=== PATIENT | female | born 2005 | race Caucasian/White ===

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

== ENCOUNTER 2023-06-09 22:40 | Emergency (ER) | payer SELFPAY ==
[2023-06-09 22:41] VITALS: BP 141/75; PULSE 90; RESP 20; TEMP 36.6; O2SAT 98; BMI 38.7
--- NOTE | 2023-06-09 23:38 | PC.NURSE ---
rounded on pt, no needs or concerns at this time.
[2023-06-10 00:33] VITALS: BP 128/84; PULSE 84; RESP 18; TEMP 36.8; O2SAT 99
--- NOTE | 2023-06-10 03:25 | HMH.EDGENADL ---
Discharge Plan Disposition Patient Disposition: Home, Self-Care Condition: Good Prescriptions Prescriptions: New cephalexin 500 mg capsule 500 mg PO QID 7 Days Qty: 28 0RF valacyclovir 1 gram tablet 1,000 mg PO TID 7 Days Qty: 21 0RF Referrals Follow up/Referrals: Provider,Referral, [Primary Care Provider] - See instructions Activity Restrictions/Add. Instructions Additional Instructions/Restrictions: Please take antiviral medications and antibiotic medications as prescribed for treatment given possible infection. Please monitor for any facial weakness. Please continue to treat your feet as discussed for athlete's foot using topical antifungal agents. Discharge instructions. Clinical Impressions Clinical Impression: Impetigo, Vesicles Instructions Patient Instructions: DI for Skin Abscess Discharge ED Provider: Garcia Munoz General Adult HPI <Brad Rivas MD - Last Filed: 06/10/23 03:25> General Chief complaint: Skin/Abscess/Foreign Body Stated complaint: upset stomach, bilateral ear pain, fever/chills Time Seen by Provider: 06/09/23 23:01 Mode of Arrival: Ambulatory Source of Information: Patient Limitations: No Limitations Description of Symptoms (Recalled from ER Triage Doc. by RN): Pt states she developed blisters on her mouth first a couple days ago, then to her nose,ears, and feet yesterday. Rates pain in her ears 910. Related Data Previous Rx's Medication Instructions Recorded cephalexin 500 mg capsule 500 mg PO QID 7 days #28 caps 06/10/23 valacyclovir 1 gram tablet 1,000 mg PO TID 7 days #21 tabs 06/10/23 Allergies Allergy/AdvReac Type Severity Reaction Status Date / Time amoxicillin Allergy Verified 07/04/22 12:56 cefdinir [From Omnicef] Allergy Verified 07/04/22 12:56 Cephalosporins Allergy Hives Verified 06/10/23 09:51 sulfamethoxazole Allergy Verified 07/04/22 12:56 [From Bactrim] trimethoprim [From Bactrim] Allergy Verified 07/04/22 12:56 <Garcia Munoz MD - Last Filed: 06/10/23 19:49> History of Present Illness HPI narrative: Patient presents for evaluation of PFSH <Brad Rivas MD - Last Filed: 06/10/23 03:25> PFSH Disclaimer: The information contained in this section may have been updated after the patient was seen, as this information can be updated by other users. Surgical History History of tonsillectomy History of tympanostomy tube placement Social History Smoking Status: Never smoker alcohol intake: never current occupational status: student Travel in the last 8 weeks: None <Garcia Munoz MD - Last Filed: 06/10/23 19:49> ROS Obtained: Yes Systems reviewed as appropriate & no additional complaints except as documented <Garcia Munoz MD - Last Filed: 06/10/23 19:49> General General appearance: alert and in no apparent distress Head Head exam: atraumatic and normocephalic Eye Eye exam: Present normal appearance Neck Neck exam: Present normal inspection Chest Chest inspection: Present normal inspection and symmetric chest wall rise Respiratory Respiratory exam: Present normal lung sounds bilaterally; Absent respiratory distress Cardiovascular Cardiovascular exam: Present regular rate and normal rhythm Abdominal Exam Abdominal exam: Present soft Neurological Exam Neurological exam: Present alert and oriented X3 Psychiatric Psychiatric exam: Present normal affect and normal mood Skin Skin exam: Present warm and dry Medical Decision Making <Brad Rivas MD - Last Filed: 06/10/23 03:25> Vital Signs: 06/09/23 22:41 06/10/23 00:33 Temperature 98 F 98.2 F Temperature Source Oral Oral Pulse Rate 84 Pulse Rate [Left] 90 Respiratory Rate 20 18 Blood Pressure 128/84 Blood Pressure [Right Arm] 141/75 H Blood Pressure Mean [Right Arm] 97 Blood Pressure Source Automatic Cuff Blood Pressure Source
--- NOTE | 2023-06-10 09:59 | PC.NURSE ---
[facility] pharmacy called, reporting pt has a cephalosporin allergy (not in our system- added allergy at this time) spoke with Dr. Moore, states cancel cephalexin, gave verbal order for Mupirocin ointment BID x7 days- repeated and verified. Verbal prescription given to Patsy at [facility] pharmacy
--- NOTE | 2023-06-11 02:38 | HMH.EDGENADL ---
Discharge Plan Disposition Patient Disposition: Home, Self-Care Condition: Good Prescriptions Prescriptions: New cephalexin 500 mg capsule 500 mg PO QID 7 Days Qty: 28 0RF valacyclovir 1 gram tablet 1,000 mg PO TID 7 Days Qty: 21 0RF Referrals Follow up/Referrals: Provider,Referral, [Primary Care Provider] - See instructions Activity Restrictions/Add. Instructions Additional Instructions/Restrictions: Please take antiviral medications and antibiotic medications as prescribed for treatment given possible infection. Please monitor for any facial weakness. Please continue to treat your feet as discussed for athlete's foot using topical antifungal agents. Discharge instructions. Clinical Impressions Clinical Impression: Impetigo, Vesicles Instructions Patient Instructions: DI for Skin Abscess Discharge ED Provider: Brad Rivas General Adult HPI General Chief complaint: Skin/Abscess/Foreign Body Stated complaint: upset stomach, bilateral ear pain, fever/chills Time Seen by Provider: 06/09/23 23:01 Mode of Arrival: Ambulatory Source of Information: Patient Limitations: No Limitations Description of Symptoms (Recalled from ER Triage Doc. by RN): Pt states she developed blisters on her mouth first a couple days ago, then to her nose,ears, and feet yesterday. Rates pain in her ears 9/10. History of Present Illness HPI narrative: 17-year-old female presents with multiple complaints. Patient has developed some blisters and pustules on the edge of her nose, at the corners of her mouth, and in her ears bilaterally. This has been present for the last couple of days and has been worsening. She reports no fevers chills or systemic symptoms. She reports no intraoral pain, no lesions on the hands. She reports that she is dealing with chronic athlete's foot bilaterally and it seems to be worsening. No recent infectious exposure though she does work at [employer]. She reports no change in hearing but reports significant pain in the ears bilaterally. Reports no neurologic symptoms. She denies any significant medical comorbidities. She reports that she is not sexually active and has had no exposure to STDs. She is up-to-date on her vaccinations. Related Data Previous Rx's Medication Instructions Recorded cephalexin 500 mg capsule 500 mg PO QID 7 days #28 caps 06/10/23 valacyclovir 1 gram tablet 1,000 mg PO TID 7 days #21 tabs 06/10/23 Allergies Allergy/AdvReac Type Severity Reaction Status Date / Time amoxicillin Allergy Verified 07/04/22 12:56 cefdinir [From Omnicef] Allergy Verified 07/04/22 12:56 Cephalosporins Allergy Hives Verified 06/10/23 09:51 sulfamethoxazole Allergy Verified 07/04/22 12:56 [From Bactrim] trimethoprim [From Bactrim] Allergy Verified 07/04/22 12:56 [facility] Disclaimer: The information contained in this section may have been updated after the patient was seen, as this information can be updated by other users. Surgical History History of tonsillectomy History of tympanostomy tube placement Social History Smoking Status: Never smoker alcohol intake: never current occupational status: student Travel in the last 8 weeks: None ROS Obtained: Yes All systems reviewed & no additional complaints except as documented Physical Exam General General appearance: alert and in no apparent distress Head Head exam: atraumatic and normocephalic Eye Eye exam: Present normal appearance, PERRL and EOMI; Absent conjunctival injection ENT ENT exam: Present normal oropharynx (No significant intraoral lesions) and other (Impetigo of the right nare, blisters at the angle of the mouth bilaterally. Unable to visualize the TMs bilaterally secondary to crusting/cerumen); Absent normal external ear exam (Erythema with crusting vesicles/pustules on the pinna and in the EAC b
== END 2023-06-10 00:30 | disposition home or self-care (01) ==
PROVIDERS: Emergency Provider Emergency Medicine
DX: L01.00 Impetigo, unspecified (principal); B00.1 Herpesviral vesicular dermatitis
CPT/HCPCS: 99283

== ENCOUNTER 2023-06-27 09:52 | Emergency (ER) | payer SELFPAY ==
[2023-06-27 10:00] VITALS: BP 119/66; PULSE 61; RESP 20; TEMP 36.7; O2SAT 98; BMI 36.1
--- NOTE | 2023-06-27 10:18 | EXP.UTC ---
Discharge Plan Disposition Patient Disposition: Home, Self-Care Condition: Good Prescriptions Prescriptions: New ciprofloxacin-dexamethasone [Ciprodex] 0.3-0.1 % drops,suspension 4 drp otic (ear) BID 7 Days Qty: 7.5 0RF Rx Instructions: right ear as directed azithromycin [Zithromax Z-Raghu] 250 mg tablet See Rx Instructions .ROUTE .COMPLEX 5 Days Qty: 6 0RF Rx Instructions: For 250 mg dose pack: take 500 mg today (day 1), then 250 mg for 4 days (days 2-5) Referrals Follow up/Referrals: Provider,Referral, MD [Primary Care Provider] - See instructions Activity Restrictions/Add. Instructions Additional Instructions/Restrictions: Use drops as prescribed Follow up with your Family Doctor if no improvement or any worsening of symptoms Follow up with ENT if needed Straight to ER if any life threatening symptoms Clinical Impressions Clinical Impression: Otitis media Qualifiers: Otitis media type: unspecified Laterality: right Qualified Code(s): H66.91 - Otitis media, unspecified, right ear Otitis externa Qualifiers: Otitis externa type: unspecified type Chronicity: unspecified Laterality: right Qualified Code(s): H60.91 - Unspecified otitis externa, right ear Instructions Patient Instructions: DI for Otitis Externa, Otitis Externa, Middle Ear Infection Discharge ED Provider: Sadia Jerome [facility] General Stated complaint: ear pain Mode of Arrival: Ambulatory Source of Information: Patient Limitations: No Limitations Time Seen by Provider: 06/27/23 10:18 Description of Symptoms (Recalled from Triage Doc. by RN): PATIENT C/O RIGHT EAR PAIN HEENT Symptoms (Recalled from RN notes): Yes Resp Symptoms (Recalled from RN notes): No Skin Symptoms (Recalled from RN notes): No MS Symptoms (Recalled from RN notes): No Functional Status (Recalled from RN notes): WNL History of Present Illness Provider Complaint: Patient states that she has been having pain in her right ear with drainage and sore to the touch States that she was recently treated for Impetigo in her ear States that she has finished all her medication but now she is having pain in her right ear feels like she cannot hear out of it and its ringing at times Related Data Previous Rx's Medication Instructions Recorded azithromycin 250 mg tablet See Rx Instructions PO .COMPLEX 5 06/27/23 (Zithromax Z-Raghu) days #6 tabs ciprofloxacin 0.3 %-dexamethasone 4 drp otic (ear) BID 7 days #7.5 mL 06/27/23 0.1 % ear drops,suspension (Ciprodex) Allergies Allergy/AdvReac Type Severity Reaction Status Date / Time amoxicillin Allergy Verified 07/04/22 12:56 cefdinir [From Omnicef] Allergy Verified 07/04/22 12:56 Cephalosporins Allergy Hives Verified 06/10/23 09:51 sulfamethoxazole Allergy Verified 07/04/22 12:56 [From Bactrim] trimethoprim [From Bactrim] Allergy Verified 07/04/22 12:56 Worker's Comp Is this a Worker's Comp case?: No [facility] Disclaimer: The information contained in this section may have been updated after the patient was seen, as this information can be updated by other users. Surgical History History of tonsillectomy History of tympanostomy tube placement Social History Smoking Status: Never smoker alcohol intake: never current occupational status: student Travel in the last 8 weeks: None ROS Obtained: Yes All systems reviewed & no additional complaints except as documented and Yes Systems reviewed as appropriate & no additional complaints except as documented Constitutional Constitutional: Reports system reviewed and no additional complaints, except as documented and Reports as per HPI ENT Ears, Nose, Mouth, and Throat: Reports system reviewed and no additional complaints, except as documented, Reports as per HPI and Reports otalgia Cardiovascular Cardiovascular: Reports system reviewed and n
[2023-06-27 10:21] VITALS: BP 119/66; PULSE 61; RESP 20; TEMP 36.7; O2SAT 98
== END 2023-06-27 10:32 | disposition home or self-care (01) ==
PROVIDERS: Emergency Provider Nurse Practitioner
DX: H66.91 Otitis media, unspecified, right ear (principal); H60.91 Unspecified otitis externa, right ear
CPT/HCPCS: 99212; 99214; G0463

== ENCOUNTER 2023-10-02 12:29 | Emergency (ER) | payer BC, SELFPAY ==
[2023-10-02 14:40] VITALS: BP 125/77; PULSE 76; RESP 19; TEMP 36.7; O2SAT 99; BMI 35.8
[2023-10-02 14:50] VITALS: BP 125/77; PULSE 76; RESP 19; TEMP 36.7; O2SAT 99
--- NOTE | 2023-10-02 15:12 | EXP.UTC ---
Discharge Plan Disposition Patient Disposition: Home, Self-Care Condition: Good Prescriptions Prescriptions: New erythromycin 5 mg/gram (0.5 %) ointment 0.5 inch ophthalmic (eye) BID 10 Days Qty: 7 0RF Rx Instructions: apply to area on right lower eyelid as directed Referrals Follow up/Referrals: Provider,Referral, MD [Primary Care Provider] - See instructions Activity Restrictions/Add. Instructions Additional Instructions/Restrictions: Apply warm compress to eyelid 3-4 times daily and just before applying topical ointment Use prescribed ointment as directed Follow up with your Eye Doctor if no improvement or any worsening of symptoms FOllow up with your Family Doctor if needed Clinical Impressions Clinical Impression: External hordeolum Qualifiers: Laterality: right Eyelid: lower Qualified Code(s): H00.012 - Hordeolum externum right lower eyelid Instructions Patient Instructions: DI for Hordeolum, Hordeolum, Erythromycin Ophthalmic Discharge ED Provider: Sadia Jerome [facility] General Stated complaint: redness and swelling to R eye Mode of Arrival: Ambulatory Source of Information: Patient Limitations: No Limitations Time Seen by Provider: 10/02/23 15:12 Description of Symptoms (Recalled from Triage Doc. by RN): PATIENT C/O REDNESS AND SWELLING TO RIGHT EYE X 3 DAYS HEENT Symptoms (Recalled from RN notes): Yes Resp Symptoms (Recalled from RN notes): No Skin Symptoms (Recalled from RN notes): No MS Symptoms (Recalled from RN notes): No Functional Status (Recalled from RN notes): WNL History of Present Illness Provider Complaint: Patient states that for the last 3 days she has a stye on her right lower eyelid that has continued to get worse and sore States that she has been using warm compresses and it hasnt helped much states that today it was hurting worse so she came in to get it checked Related Data Previous Rx's Medication Instructions Recorded erythromycin 5 mg/gram (0.5 %) eye 0.5 inch ophthalmic (eye) BID 10 10/02/23 ointment days #7 grams Allergies Allergy/AdvReac Type Severity Reaction Status Date / Time amoxicillin Allergy Verified 07/04/22 12:56 cefdinir [From Omnicef] Allergy Verified 07/04/22 12:56 Cephalosporins Allergy Hives Verified 06/10/23 09:51 codeine Allergy Verified 01/01/24 14:47 sulfamethoxazole Allergy Verified 07/04/22 12:56 [From Bactrim] trimethoprim [From Bactrim] Allergy Verified 07/04/22 12:56 Worker's Comp Is this a Worker's Comp case?: No [facility] Disclaimer: The information contained in this section may have been updated after the patient was seen, as this information can be updated by other users. Surgical History History of tonsillectomy History of tympanostomy tube placement Social History Smoking Status: Never smoker alcohol intake: never current occupational status: student Travel in the last 8 weeks: None ROS Obtained: Yes All systems reviewed & no additional complaints except as documented and Yes Systems reviewed as appropriate & no additional complaints except as documented Constitutional Constitutional: Reports system reviewed and no additional complaints, except as documented and Reports as per HPI Eyes Eyes: Reports system reviewed and no additional complaints, except as documented, Reports as per HPI and Reports other (bump with redness and swelling on right lower eyelid) ENT Ears, Nose, Mouth, and Throat: Reports system reviewed and no additional complaints, except as documented and Reports as per HPI Cardiovascular Cardiovascular: Reports system reviewed and no additional complaints, except as documented and Reports as per HPI Respiratory Respiratory: Reports system reviewed and no additional complaints, except as documented and Reports as per HPI Gastrointestinal Gastrointestingal: Reports system reviewed and no additional complaints, except as documented and as per HPI Physical Exam General General appearance: alert and in no apparent distress Eye Eye exam: Present other (redness swelling and stye like lesion noted on right lower eyelid ) ENT ENT exam: Present mucous membranes moist Respiratory Respiratory exam: Present normal lung sounds bilaterally; Absent respiratory distress or wheezes Cardiovascular Cardiovascular exam: Present regular rate, normal rhythm and normal heart sounds Abdominal Exam Abdominal exam: Present soft and normal bowel sounds; Absent distention or tenderness Neurological Exam Neurological exam: Present alert, oriented X3 and normal gait Medical Decision Making Ismael Inquiry Pt receiving controlled substance: No Ismael was queried for this patient: No Vital Signs: 10/02/23 14:40 10/02/23 14:50 Temperature 98.0 F 98.0 F Temperature Source Oral Pulse Rate 76 Pulse Rate [Left Brachial] 76 Respiratory Rate 19 19 Blood Pressure 125/77 Blood Pressure [Left Arm] 125/77 Blood Pressure Mean [Left Arm] 93 Blood Pressure Source [Left Arm] Automatic Cuff Blood Pressure Position [Left Arm] Sitting 02 Sat by Pulse Oximetry 99 Oxygen Delivery Method Room Air
== END 2023-10-02 15:26 | disposition home or self-care (01) ==
PROVIDERS: Emergency Provider Nurse Practitioner
DX: H00.012 Hordeolum externum right lower eyelid (principal)
CPT/HCPCS: 99212; 99214; G0463

== ENCOUNTER 2023-12-30 08:10 | Emergency (ER) | payer BC, SELFPAY ==
[2023-12-30 08:10] VITALS: BP 140/83; PULSE 76; RESP 17; TEMP 36.5; O2SAT 100; BMI 35.5
--- NOTE | 2023-12-30 08:13 | PC.NURSE ---
MD in room talking with patient at this time.
[2023-12-30 08:15] VITALS: PULSE 89; O2SAT 99
--- NOTE | 2023-12-30 08:16 | XR_ITS ---
PROCEDURE INFORMATION: Exam: XR Right Hand Exam date and time: 12/30/2023 8:18 AM Age: 18 years old Clinical indication: Injury or trauma; Other: Dropped microwave on finger; Blunt trauma (contusions or hematomas); Hand; Right; Additional info: Index finger trauma, swelling, tenderness TECHNIQUE: Imaging protocol: Radiologic exam of the right hand. Views: 1 or 2 views. COMPARISON: No relevant prior studies available. FINDINGS: Bones/joints: There is no evidence of acute fracture.There is no evidence of malalignment or dislocation. Soft tissues: Normal. IMPRESSION: There is no evidence of acute fracture.There is no evidence of malalignment or dislocation.
--- NOTE | 2023-12-30 08:17 | HMH.EDGENADL ---
Discharge Plan Disposition Patient Disposition: Home, Self-Care Condition: Good Prescriptions Prescriptions: New clindamycin HCl 150 mg capsule 450 mg PO Q8H 5 Days Qty: 45 0RF Referrals Follow up/Referrals: Provider,Referral, [Primary Care Provider] - See instructions Activity Restrictions/Add. Instructions Additional Instructions/Restrictions: You were seen in the ED today due to finger pain and swelling. You most likely have a cellulitis. Please take antibiotics as prescribed. Watch for any signs of worsening and return to the ED if any symptoms worsen. Clinical Impressions Clinical Impression: Cellulitis Qualifiers: Site of cellulitis: extremity Site of cellulitis of extremity: finger Laterality: right Qualified Code(s): L03.011 - Cellulitis of right finger Instructions Patient Instructions: Cellulitis Discharge ED Provider: Lenny Woodward General Adult HPI General Chief complaint: PAIN Stated complaint: right finger swollen Time Seen by Provider: 12/30/23 08:13 History of Present Illness HPI narrative: Patient is an otherwise healthy 18-year-old female presenting due to finger pain. Patient's mother is present to help provide history. Patient reports 3 days ago she dropped a microwave on her right index finger. States it hurts in the moment however it did not begin to swell and become tender until yesterday. Denies any injury elsewhere. States she did not notice any cuts, abrasions or lacerations. Denies any medications prior to arrival. Related Data Previous Rx's Medication Instructions Recorded clindamycin HCl 150 mg capsule 450 mg (3 x 150 mg) PO Q8H 5 days 12/30/23 #45 caps Allergies Allergy/AdvReac Type Severity Reaction Status Date / Time amoxicillin Allergy Verified 07/04/22 12:56 cefdinir [From Omnicef] Allergy Verified 07/04/22 12:56 Cephalosporins Allergy Hives Verified 06/10/23 09:51 codeine Allergy Verified 10/02/23 14:47 sulfamethoxazole Allergy Verified 07/04/22 12:56 [From Bactrim] trimethoprim [From Bactrim] Allergy Verified 07/04/22 12:[address] [facility] Disclaimer: The information contained in this section may have been updated after the patient was seen, as this information can be updated by other users. Surgical History History of tonsillectomy History of tympanostomy tube placement Social History Smoking Status: Never smoker alcohol intake: never current occupational status: student Travel in the last 8 weeks: None ROS Obtained: Yes All systems reviewed & no additional complaints except as documented Musculoskeletal Musculoskeletal: Reports arthralgias and Reports joint swelling Physical Exam General General appearance: alert and in no apparent distress Head Head exam: atraumatic, normocephalic and normal inspection Eye Eye exam: Present normal appearance, PERRL and EOMI ENT ENT exam: Present normal exam, normal oropharynx, mucous membranes moist, TM's normal bilaterally and normal external ear exam Neck Neck exam: Present normal inspection, full ROM and trachea midline; Absent meningismus or lymphadenopathy Chest Chest inspection: Present normal inspection and symmetric chest wall rise; Absent tenderness Respiratory Respiratory exam: Present normal lung sounds bilaterally; Absent respiratory distress Cardiovascular Cardiovascular exam: Present regular rate and normal rhythm; Absent JVD Abdominal Exam Abdominal exam: Present soft and normal bowel sounds; Absent distention, tenderness or guarding Extremities Exam Extremities exam: Present normal inspection, full ROM and normal capillary refill; Absent calf tenderness Back Exam Back exam: Present normal inspection; Absent tenderness Neurological Exam Neurological exam: Present alert and oriented X3 Psychiatric Psychiatric exam: Present normal affect and normal mood Skin Skin exam: Present warm, dry, intact and normal color Lymphatic Lymphatic Findings: no adenopathy Medical Decision Making Ismael Inquiry Pt receiving controlled substance: No Ismael was queried for this patient: No Vital Signs: 12/30/23 08:10 12/30/23 08:15 12/30/23 08:31 Temperature 97.7 F Temperature Source Oral Pulse Rate 89 91 H Pulse Rate [Left Radial] 76 Respiratory Rate 17 Blood Pressure Blood Pressure [Right Arm] 140/83 Blood Pressure Mean Blood Pressure Mean [Right Arm] 102 02 Sat by Pulse Oximetry 100 99 100 Oxygen Delivery Method Room Air 12/30/23 09:29 12/30/23 10:00 Temperature Temperature Source Pulse Rate 84 84 Pulse Rate [Left Radial] Respiratory Rate Blood Pressure 128/70 124/77 Blood Pressure [Right Arm] Blood Pressure Mean 86 Blood Pressure Mean [Right Arm] 02 Sat by Pulse Oximetry 98 98 Oxygen Delivery Method Room Air Room Air Lab Data Lab Results 12/30/23 09:00: WBC 10.0, RBC 4.68, Hgb 14.1, Hct 42.7, MCV 91.2, MCH 30.2, MCHC 33.1, RDW 14.0, Plt Count 265, MPV 8.4, Neut % (Auto) 68.8, Lymph % (Auto) 22.7, [place] % (Auto) 5.2, Eos % (Auto) 2.3, Baso % (Auto) 1.0, Neut # (Auto) 6.9, Lymph # (Auto) 2.3, [place] # (Auto) 0.5, Eos # (Auto) 0.2, Baso # (Auto) 0.1, ESR 22 H, Sodium 141, Potassium 3.6, Chloride 110 H, Carbon Dioxide 22, Anion Gap 12.6, BUN 10, Creatinine 0.70, Estimated Creat Clear 202, Estimated GFR 107, Est GFR ( Amer) 129, Glucose 121 H, Calcium 9.3, C-Reactive Protein 4.8 H 12/30/23 09:00 12/30/23 09:00 Orders (Tests/Meds): ED MEDICATIONS Discontinued Medications Generic Name Dose Route Start Last Admin Trade Name Nikki PRN Reason Stop Dose Admin Acetaminophen 1,000 mg 12/30/23 08:16 12/30/23 08:31 Acetaminophen 500mg Tab PO 12/30/23 08:17 1,000 mg ONCE ONE Administration Ibuprofen 600 mg 12/30/23 08:16 12/30/23 08:31 Ibuprofen 600 Mg Tablet PO 12/30/23 08:17 600 mg ONCE ONE Administration ORDERS Category Date Time Status Hand XR right 2 views [XR hand RT 2V] Stat Exams 12/30/23 08:16 Completed POCUS Point of Care (ER Only) Stat Exams 12/30/23 09:03 Ordered BMP [Basic Metabolic Panel] Stat Lab 12/30/23 09:00 Completed CBC w/Auto Diff [Complete Blood Count Auto Diff] Stat Lab 12/30/23 09:00 Completed CRP [C-Reactive Protein] Stat Lab 12/30/23 09:00 Completed ESR [Erythrocyte Sedimentation Rate] Stat Lab 12/30/23 09:00 Completed Medical Decision Narrative: In summary, patient is otherwise healthy 18-year-old female, evaluated in the emergency department today due to finger pain and swelling. On arrival, patient is hemodynamically stable with normal vital signs. On examination, patient has swelling, erythema, tenderness to right hand second digit. Differential diagnosis includes but is not limited to fracture, dislocation, cellulitis, flexor tenosynovitis. Patient given oral Tylenol, ibuprofen. Workup initiated including x-ray of right hand, CBC, BMP, ESR, CRP. Labs independently interpreted by me and significant for mildly elevated ESR, CRP. Imaging independently interpreted by me and significant for x-ray right hand demonstrating no acute fracture, no dislocation, otherwise no acute findings. On reevaluation, patient reports improvement in pain. Ultrasound of right hand second digit obtained demonstrating cobblestoning with no tendon sheath edema, consistent with cellulitis. Patient's mildly elevated ESR and CRP are also consistent with cellulitis. Patient is appropriate for discharge on outpatient antibiotics. Patient was counseled at bedside for signs of worsening that would be concerning for flexor tenosynovitis. Patient states she will arrange follow-up with primary care provider. Prescription for clindamycin provided given patient's allergies to cephalosporins and Bactrim. Patient given home care instructions, strict return precautions and agreeable to plan. Additional history was provided by mother. I considered the utility of obtaining CT imaging, but decided against this because this would not telephone exchange operator. I considered the utility of treatment with prescription for narcotics, but decided against this because risks outweigh benefits. I considered admitting the patient to the hospital for observation, and in shared decision-making with patient, decided on outpatient management. Procedures Limited Ultrasound Indication:: Right second digit pain, swelling Views:: Transverse, longitudinal Findings:: Cobblestoning, no tendon sheath edema Interpretation:: Cellulitis of finger Critical Care Critical Care Time Critical Care Time: No
--- NOTE | 2023-12-30 08:20 | PC.NURSE ---
pt to xray
[2023-12-30 08:31] VITALS: PULSE 91; O2SAT 100
[2023-12-30] MEDS: ACETAMINOPHEN 500MG TAB 1000 MG PO (08:31)
[2023-12-30] MEDS: IBUPROFEN 600 MG TABLET PO (08:31)
--- NOTE | 2023-12-30 08:31 | PC.NURSE ---
pt back from xray
[2023-12-30 09:09] LABS: Basophils # 0.1 K/mm3 (0-0.2); Eosinophils # 0.2 K/mm3 (0.0-0.4); Eosinophils % 2.3 % (0.1-12.0); Hematocrit 42.7 % (37.0-47.0); Hemoglobin 14.1 g/dL (12.2-16.2); Lymphocytes # 2.3 K/mm3 (0.7-4.5); Lymphocytes % 22.7 % (10-50); Mean Corpuscular HGB Conc 33.1 g/dL (31.8-35.4); Mean Corpuscular Hemoglobin 30.2 pg (27.0-31.2); Mean Corpuscular Volume 91.2 fl (81-99); Mean Platelet Volume 8.4 fl (7.4-10.4); Monocytes # 0.5 K/mm3 (0.1-1.0); Monocytes % 5.2 % (1.7-9.3); Neutrophils # 6.9 K/mm3 (1.8-7.8); Neutrophils % 68.8 % (37.0-80.0); Platelet Count 265 K/mm3 (142-424); Red Blood Count 4.68 M/mm3 (4.20-5.40)
[2023-12-30 09:19] LABS: Anion Gap 12.6 mEq/L (5-15); Blood Urea Nitrogen 10 mg/dl (7-17); Calcium 9.3 mg/dl (8.4-10.2); Carbon Dioxide 22 mmol/L (22.0-30.0); Chloride 110 mmol/L (98-107); Creatinine Clearance Estimated 202 mL/min (50-200); Estimated Glomerular Filt Rate 107 ml/min (>60); GFR (African American) 129 ML/MIN (>60); Glucose 121 mg/dl (74-100); Potassium 3.6 mmoL/L (3.5-5.1); Sodium 141 mmol/L (136-145)
[2023-12-30 09:24] LABS: C-Reactive Protein 4.8 mg/L (0-4)
[2023-12-30 09:29] VITALS: BP 128/70; PULSE 84; O2SAT 98
[2023-12-30 10:00] VITALS: BP 124/77; PULSE 84; O2SAT 98
[2023-12-30 10:01] LABS: Erythrocyte Sedimentation Rate 22 mm/hr (0-20)
[2023-12-30 10:19] VITALS: BP 124/77; PULSE 72; RESP 16; TEMP 36.5
== END 2023-12-30 10:20 | disposition home or self-care (01) ==
PROVIDERS: Emergency Provider Student in an Organized Health Care Education/Training Program
DX: L03.011 Cellulitis of right finger (principal)
CPT/HCPCS: 73120; 80048; 85025; 85651; 86140; 99284

== ENCOUNTER 2024-02-05 10:11 | Emergency (ER) | payer BC, SELFPAY ==
[2024-02-05 10:35] VITALS: BP 127/83; PULSE 74; RESP 16; TEMP 37; O2SAT 99; BMI 38.7
[2024-02-05 10:44] LABS: Apearance,Urine Clear (Clear); Bilirubin,Urine Negative (Negative); Blood, Urine 1+ (Negative); Color,Urine Orange (Yellow); Glucose,Urine (UA) 100 (Negative); Ketones,Urine Negative (Negative); Protein,Urine 1+ (Negative); Urobilinogen,Urine 1 EU/dl (0.2)
[2024-02-05 10:44] LABS: UTC Pregnancy Test, Urine Negative (Negative)
[2024-02-05 10:45] LABS: UTC Leukocyte Esterase,Urine Negative (Negative); UTC Nitrate,Urine Positive (Negative)
--- NOTE | 2024-02-05 10:52 | ED_ITS ---
Discharge Plan Disposition Patient Disposition: Home, Self-Care Condition: Good Prescriptions Prescriptions: New ciprofloxacin HCl [Cipro] 500 mg tablet 500 mg PO Q12H 7 Days Qty: 14 0RF phenazopyridine [Pyridium] 200 mg tablet 200 mg PO Q8H 2 Days Qty: 6 0RF Referrals Follow up/Referrals: Provider,Referral, MD [Primary Care Provider] - See instructions Activity Restrictions/Add. Instructions Additional Instructions/Restrictions: *Increase fluids. Water not Soda or Tea *Start antibiotic immediately and be sure to take as ordered for the FULL length of time although you should start to see improvement over the next 48 hours *Pyridium as needed Remember this medication will turn your urine . This is normal but it will stain what ever it gets on *You should not use Pyridium for more than 48 hours. If so , follow up with your primary physician to review urine culture and ensure that antibiotic is adequate for infection *Be SURE to follow up anytime for new or worsening symptoms with your family doctor. AND in 48 hours for urine culture results with your family doctor, if you do not have a doctor then you may call back to the [facility] for urine culture results and further treatment. We do recommend that you choose and establish care with a Primary Care Physician. ?AND follow up with them ?in 10-14 days to repeat UA to ensure infection is resolved and blood no longer present *Be sure to let your PCP know that we sent urine cultures from the [facility] so they can follow up to ensure that you area the on the correct antibiotic Call your doctor office and make appointment for 48 hours (2 days from today) ?to follow up and get the results of your urine culture and further treatment You was given Cipro, if you start having any joint or tendon pain especially in the back of your heels follow up immediately Clinical Impressions Clinical Impression: UTI (urinary tract infection) Instructions Patient Instructions: DI for Urinary Tract Infection (UTI), Ciprofloxacin Discharge ED Provider: Sadia Jerome [facility] HPI General Stated complaint: uti pain Mode of Arrival: Ambulatory Source of Information: Patient Limitations: No Limitations Time Seen by Provider: 02/05/24 10:52 Description of Symptoms (Recalled from Triage Doc. by RN): PATIENT C/O CRAMPING IN LOWER ABDOMEN AND BACK SINCE MONDAY MORNING HEENT Symptoms (Recalled from RN notes): No Resp Symptoms (Recalled from RN notes): No Skin Symptoms (Recalled from RN notes): No MS Symptoms (Recalled from RN notes): No Functional Status (Recalled from RN notes): WNL History of Present Illness Provider Complaint: Patient states that she started on with achy feeling in her lower back and pressure in her lower abdomen along with urgency, frequency and burning with urination States that she took OTC AZO but not helped much so she came in to get checked Related Data Previous Rx's Medication Instructions Recorded ciprofloxacin HCl 500 mg tablet 500 mg PO Q12H 7 days #14 tabs 02/05/24 (Cipro) phenazopyridine 200 mg tablet 200 mg PO Q8H pain 2 days #6 tabs 02/05/24 (Pyridium) Allergies Allergy/AdvReac Type Severity Reaction Status Date / Time amoxicillin Allergy Verified 01/31/24 09:56 cefdinir [From Omnicef] Allergy Verified 01/31/24 09:56 Cephalosporins Allergy Hives Verified 01/31/24 09:56 codeine Allergy Verified 01/31/24 09:56 sulfamethoxazole Allergy Verified 01/31/24 09:56 [From Bactrim] trimethoprim [From Bactrim] Allergy Verified 01/31/24 09:56 Worker's Comp Is this a Worker's Comp case?: No [facility] Disclaimer: The information contained in this section may have been updated after the patient was seen, as this information can be updated by other users. Medical History (Updated 02/05/24 @ 10:58 by Sadia Jerome APRN) No significant past medical history Surgical History History of tympanostomy tube placement History of tonsillectomy Family History Other No significant family history Social History Smoking Status: Never smoker alcohol intake: never current occupational status: student Travel in the last 8 weeks: None ROS Obtained: Yes All systems reviewed & no additional complaints except as documented and Yes Systems reviewed as appropriate & no additional complaints except as documented Constitutional Constitutional: Reports system reviewed and no additional complaints, except as documented, Reports as per HPI, Denies body ache, Denies chills and Denies fever(s) ENT Ears, Nose, Mouth, and Throat: Reports system reviewed and no additional complaints, except as documented and Reports as per HPI Cardiovascular Cardiovascular: Reports system reviewed and no additional complaints, except as documented and Reports as per HPI Respiratory Respiratory: Reports system reviewed and no additional complaints, except as documented and Reports as per HPI Gastrointestinal Gastrointestingal: Reports system reviewed and no additional complaints, except as documented, as per HPI and abdominal pain (reports pressure like feeling in lower); Denies nausea or vomiting Genitourinary Female Genitourinary: Reports system reviewed and no additional complaints, except as documented, Reports as per HPI, Reports dysuria, Reports flank pain, Reports urinary frequency and Reports urinary urgency Physical Exam General General appearance: alert and in no apparent distress ENT ENT exam: Present mucous membranes moist Respiratory Respiratory exam: Present normal lung sounds bilaterally; Absent respiratory distress or wheezes Cardiovascular Cardiovascular exam: Present regular rate, normal rhythm and normal heart sounds Abdominal Exam Abdominal exam: Present soft and normal bowel sounds; Absent distention or tenderness Neurological Exam Neurological exam: Present alert, oriented X3 and normal gait Medical Decision Making Ismael Inquiry Pt receiving controlled substance: No Ismael was queried for this patient: No Vital Signs: 02/05/24 10:35 Temperature 98.6 F Temperature Source Oral Pulse Rate [Left Brachial] 74 Respiratory Rate 16 Blood Pressure [Left Arm] 127/83 Blood Pressure Mean [Left Arm] 97 Blood Pressure Source [Left Arm] Automatic Cuff Blood Pressure Position [Left Arm] Sitting 02 Sat by Pulse Oximetry 99 Oxygen Delivery Method Room Air Lab Data Lab results reviewed: Yes I reviewed the patient's lab results. Lab Results 02/05/24 10:29: Urine Color [place], Urine Appearance Clear, Urine pH 5.0, Ur Specific [place] 1.030, Urine Protein 1+, Urine Glucose (UA) 100, Urine Ketones Negative, Urine Blood 1+, Urine Nitrate Positive A, Urine Bilirubin Negative, Urine Urobilinogen 1, Ur Leukocyte Esterase Negative 02/05/24 10:36: [facility] Negative Orders (Tests/Meds): ORDERS Category Date Time Status Urine Culture Stat Micro 02/05/24 10:42 Ordered
[2024-02-05 11:01] VITALS: BP 127/83; PULSE 74; RESP 16; TEMP 37; O2SAT 99
== END 2024-02-05 11:04 | disposition home or self-care (01) ==
PROVIDERS: Emergency Provider Nurse Practitioner
DX: N39.0 Urinary tract infection, site not specified (principal); B96.1 Klebsiella pneumoniae [K. pneumoniae] as the cause of diseases classified elsewhere; M54.59 Other low back pain; R30.0 Dysuria
CPT/HCPCS: 81003; 81025; 87086; 87088; 87186; 99212; 99214; G0463

== ENCOUNTER 2024-06-18 07:40 | Emergency (ER) | payer BC, SELFPAY ==
[2024-06-18 07:42] VITALS: BP 117/73; PULSE 83; RESP 18; TEMP 36.7; O2SAT 97; BMI 35.5
[2024-06-18 07:52] VITALS: BP 117/73; PULSE 94; O2SAT 98
--- NOTE | 2024-06-18 07:56 | PC.NURSE ---
Dr. Moore at [facility] for pt eval
--- NOTE | 2024-06-18 08:02 | ED_ITS ---
Discharge Plan Disposition Patient Disposition: Home, Self-Care Prescriptions Prescriptions: New doxycycline hyclate 100 mg capsule 100 mg PO BID 7 Days Qty: 14 0RF mupirocin 2 % ointment 1 applic topical BID 5 Days Qty: 22 0RF No Action metronidazole 500 mg tablet 500 mg PO BID Qty: 14 1RF lidocaine 5 % ointment 1 applic topical BID PRN (Reason: skin irritation) Qty: 50 1RF valacyclovir 1 gram tablet 1,000 mg PO Q12H Qty: 30 2RF Referrals Follow up/Referrals: Jerilyn Corbett MD [Primary Care Provider] - See instructions Activity Restrictions/Add. Instructions Additional Instructions/Restrictions: Call your family doctor to establish care for this visit to the emergency department and schedule follow-up within 48 hours to ensure improvement. If you have any worsening of your condition or any other concerning signs or symptoms, return to the emergency department or your primary care doctor for further evaluation. Doxycycline twice daily for 7 days, avoid alcohol while taking this. Apply ointment to both nostrils twice daily for 5 days. Use chlorhexidine soap everywhere except around eyes daily for 5-7 days. Apply to sponge, apply soap and suds to entire body (including crevices and soles of feet), silk examiner the shower for 2 to 3 minutes before rinsing. Clinical Impressions Clinical Impression: Cellulitis of lip Instructions Patient Instructions: DI for Skin Abscess Print Language Print Language: Hungarian Discharge ED Provider: Fredo Moore General Adult HPI General Chief complaint: Skin/Abscess/Foreign Body Stated complaint: swollen lips Time Seen by Provider: 06/18/24 07:44 Mode of Arrival: Ambulatory Source of Information: Patient Limitations: No Limitations Description of Symptoms (Recalled from ER Triage Doc. by RN): sore in nose,lips swollen History of Present Illness HPI narrative: Please note that above description of symptoms, in this electronic medical record under categorization of recalled from ER triage doctor by RN are reflective of an initial nursing assessment, however, is not reflective of my full history and physical exam that was personally taken and clarified. Consequentially, this preceding description of symptoms, which may include the patient's categorized chief complaint in the EMR, do not reflect my personal clinical impression, and the ultimate description of history of present illness and patient stated complaints should be deferred to this section of the note. Unless stated otherwise or congruent with this section of the note, additional signs, symptoms, or incongruence should be interpreted as inaccurate with my clinical impression. Related Data Previous Rx's ?Medication ?Instructions ?Recorded lidocaine 5 % topical ointment 1 applic topical BID PRN skin 05/24/24 irritation #50 grams metronidazole 500 mg tablet 500 mg PO BID #14 tabs 05/24/24 valacyclovir 1 gram tablet 1,000 mg PO Q12H #30 tabs 05/30/24 doxycycline hyclate 100 mg capsule 100 mg PO BID 7 days #14 caps 06/18/24 mupirocin 2 % topical ointment 1 applic topical BID 5 days #22 06/18/24 grams Allergies Allergy/AdvReac Type Severity Reaction Status Date / Time amoxicillin Allergy Verified 05/24/24 11:09 [email or web address] [From Omnicef] Allergy Verified 05/24/24 11:09 Cephalosporins Allergy Hives Verified 05/24/24 11:09 codeine Allergy Verified 05/24/24 11:09 sulfamethoxazole Allergy Verified 05/24/24 11:09 [From Bactrim] trimethoprim [From Bactrim] Allergy Verified 05/24/24 11:09 [facility] Disclaimer: The information contained in this section may have been updated after the patient was seen, as this information can be updated by other users. Medical History No significant past medical history Surgical History History of tympanostomy tube placement History of tonsillectomy Family History Other No significant family history Social History Smoking Status: Never smoker alcohol intake: never current occupational status: student Travel in the last 8 weeks: None ROS Obtained: Yes All systems reviewed & no additional complaints except as documented Physical Exam General General appearance: alert Head Head exam: atraumatic and normocephalic Eye Eye exam: Present normal appearance, PERRL and EOMI ENT ENT exam: Present other (Left nostril with small pimple at the opening of the left nare. Induration and tenderness about the left side of lip. No evidence of intraoral abnormality. No other evidence of angioedema.) Neck Neck exam: Present normal inspection, full ROM and trachea midline Respiratory Respiratory exam: Absent respiratory distress, wheezes, stridor, accessory m uscle use or prolonged expiratory phase Cardiovascular Cardiovascular exam: Present other (Pulses equal symmetric in upper and lower extremities) Abdominal Exam Abdominal exam: Present soft; Absent distention, tenderness or pulsatile mass Extremities Exam Extremities exam: Absent edema Neurological Exam Neurological exam: Present alert, oriented X3 and CN II-XII intact; Absent motor sensory deficit Skin Skin exam: Present warm and dry; Absent diaphoresis or erythema Medical Decision Making Medical Records Medical records reviewed: Yes I reviewed the patient's medical records. Ismael Inquiry Pt receiving controlled substance: No Ismael was queried for this patient: No Vital Signs: 06/18/24 07:42 06/18/24 07:52 06/18/24 08:04 Temperature 98.1 F 98.4 F Temperature Source Oral Pulse Rate 94 H 87 Pulse Rate [Right] 83 Respiratory Rate 18 18 Blood Pressure 117/73 114/68 Blood Pressure [Right Arm] 117/73 Blood Pressure Mean [Right Arm] 87 02 Sat by Pulse Oximetry 97 98 Oxygen Delivery Method Room Air Medical Decision Narrative: 18-year-old female history of numerous skin and soft tissue infections presenting with left lip fullness. States that she tried to pop it yesterday, 06/17 and since that time, started having swelling of her upper lip. No other concerning symptoms. Is mildly tender, no fevers or chills, swelling intraorally or tenderness otherwise. Came in out of concern for infection given history of numerous infections. History obtained with patient and significant other. On arrival, patient very well-appearing. She does have swelling of her left upper lip that appears to start at the nostril associated with small pimple. Indurated, tender. No evidence of intraoral abnormality. No evidence of tonsillitis, exudate, pharyngeal erythema, uvular deviation, palatal swelling, trismus, external neck swelling, submental induration, dental abscess, angioedema, or other abnormal silvestre pharyngeal findings. Differential includes cellulitis, abscess, among others. Because no fluctuance, intraoral abnormality, and duration of symptoms, I feel abscess is incredibly unlikely, no imaging or labs deemed necessary at this time. Patient be given doxycycline, mupirocin, chlorhexidine for home-going decolonization and protocol provided. Because patient at baseline without signs or symptoms of clinical decompensation, deemed appropriate for discharge. I discussed my clinical impression with patient and answered all questions. At this time, the evidence for any other entities in the differential is insufficient to warrant any further testing or ED observation. This was explained as well. Advisory was given that persistent or worsening symptoms require further evaluation. I confirmed the understanding of this discussion. Wellness Specialist disclaimer Much of this encounter note is an electronic clerical secretary spoken language to printed text. Electronic clerical secretary of the spoken language may permit errors. Although I have reviewed the note, some errors may still exist. Critical Care Critical Care Time Critical Care Time: No
[2024-06-18 08:04] VITALS: BP 114/68; PULSE 87; RESP 18; TEMP 36.9; O2SAT 97
== END 2024-06-18 08:09 | disposition home or self-care (01) ==
PROVIDERS: Emergency Provider Emergency Medicine; PCP Family Medicine
DX: L03.211 Cellulitis of face (principal)
CPT/HCPCS: 99282

== ENCOUNTER 2025-08-12 07:48 | Outpatient (CLI) | payer BC, SELFPAY ==
--- NOTE | 2025-08-12 08:00 | US_ITS ---
PROCEDURE: US TRANSVAGINAL CLINICAL INDICATION: Amenorrhea, AUB, PCOS COMPARISON: No exams were available for comparison FINDINGS: Transvaginal sonographic images of the pelvis were obtained. UTERUS: 7.2cm x 3.3cmx 2.9 cm anteverted with a combined endometrial thickness of 12.4 mm. The endometrium appears homogeneous. There is a small collection of fluid in the lower uterine segment measuring 5 mm in size. LEFT OVARY: 3.4cmx2.8 cmx2.8cm with a volume of 13.7ml. There are multiple small follicles giving the ovary a polycystic appearance. RIGHT OVARY: 4.3cmx3.3cm There are multiple follicles giving the ovary a polycystic appearance. Both ovaries are seen and appear polycystic. Doppler flow to both ovaries are seen. There is no fluid in the cul-de-sac. IMPRESSION: 1. Anteverted uterus normal in shape and size. The endometrium is slightly thickened measuring 12.4 mm. It has a homogeneous appearance. Likely premenstrual. 2. There is a 5 mm collection of fluid in the lower uterine segment. 3. Both ovaries are seen and appear polycystic. 4. No fluid in the cul-de-sac. Dictated by: Kalpesh Sosa MD 08/12/2025 12:59 Kalpesh Sosa MD in OV 08/12/2025 12:59
[2025-08-12 09:30] LABS: Cholesterol 127 mg/dl (140-200); HDL Cholesterol 41 mg/dl (40-60); Triglycerides 115 mg/dl (30-150)
[2025-08-12 10:02] LABS: Thyroid Stimulating Hormone 1.88 uIU/mL (0.465-4.68)
[2025-08-12 10:24] LABS: Hepatitis C Ab Qual. W/ RFX NEGATIVE (Negative)
[2025-08-12 10:28] LABS: Hemoglobin A1C 5.2 % (4.0-6.0)
[2025-08-12 15:31] LABS: RPR W/RFX Titers Nonreactive (Nonreactive)
[2025-08-13 08:34] LABS: Hepatitis B Surface Antigen Negative (Negative)
[2025-08-13 10:18] LABS: FSH 4.1 mIU/mL (.); LH 9.1 mIU/mL (.); Testosterone,Total 87 ng/dL (13-71)
[2025-08-13 11:23] LABS: Insulin Level Total 29.4 uIU/mL (2.6-24.9)
== END 2025-08-12 23:59 | disposition home or self-care (01) ==
PROVIDERS: PCP Family Medicine; Visit Provider Obstetrics & Gynecology
DX: E28.2 Polycystic ovarian syndrome (principal); N85.4 Malposition of uterus; R93.89 Abnormal findings on diagnostic imaging of other specified body structures; Z11.3 Encounter for screening for infections with a predominantly sexual mode of transmission; N76.0 Acute vaginitis
CPT/HCPCS: 36415; 76830; 80061; 82670; 83001; 83002; 83036; 83525; 84144; 84146; 84403; 84443; 86592; 86803; 87340; 87389

== ENCOUNTER 2025-09-15 08:36 | Outpatient (CLI) | payer BC, SELFPAY ==
[2025-09-15 20:07] LABS: Coronavirus 19, PCR Not Detected (NotDetected); Influenza A, PCR Not Detected (NotDetected); Influenza B, PCR Not Detected (NotDetected)
== END 2025-09-15 23:59 | disposition home or self-care (01) ==
LOC: LAB.DROPOF 09-17 08:37
PROVIDERS: PCP Family Medicine; Visit Provider Nurse Practitioner
DX: J06.9 Acute upper respiratory infection, unspecified (principal); J02.9 Acute pharyngitis, unspecified
CPT/HCPCS: 87631